=== PATIENT | female | born 1960 | race Two or more races ===

== ENCOUNTER 2022-07-14 15:53 | Emergency (ER) | payer BC, OTHER ==
[~2022-07-14] VITALS: Ht 175.3 cm; Wt 81.0 kg
[2022-07-14] MEDS ORDERED: traMADol HCL 50 MG TAB PO ONE (16:00)
[2022-07-14] MEDS ORDERED: TRAM-297 PO (17:45)
[2022-07-14 19:32] VITALS: BP 126/79
== END 2022-07-14 19:40 | disposition home or self-care (01) ==
LOC: EDBD 15:53 → ER 15:53
DX: S42.001A Fracture of unspecified part of right clavicle, initial encounter for closed fracture (principal); S09.8XXA Other specified injuries of head, initial encounter; F17.210 Nicotine dependence, cigarettes, uncomplicated; Z98.890 Other specified postprocedural states; W00.0XXA Fall on same level due to ice and snow, initial encounter; Y93.89 Activity, other specified; Y92.89 Other specified places as the place of occurrence of the external cause; Y99.8 Other external cause status
CPT/HCPCS: 70450; 72125; 73030